=== PATIENT | male | born 1960 | race Caucasian/White ===

== ENCOUNTER → 2017-10-26 09:18 | Outpatient (CLI) | payer BC, SELFPAY ==
[2017-10-26 11:51] LABS: Alanine Aminotransferase 22 U/L (12-78); Albumin Level 4.3 gm/dL (3.4-5.0); Albumin/Globulin Ratio 1.2 (1.1-1.8); Alkaline Phosphatase 86 U/L (46-116); Anion Gap 12.1 mEq/L (5-15); Aspartate Amino Transferase 16 U/L (15-37); Bilirubin,Total 1.6 mg/dL (0.2-1.0); Blood Urea Nitrogen 13 mg/dL (7-18); Calcium 9.7 mg/dL (8.5-10.1); Carbon Dioxide 31 mmol/L (21.0-32.0); Chloride 106 mmol/L (98-107); Chol/HDL Ratio 6.7 (1-3.5); Cholesterol 221 mg/dL (140-200); Creatinine,Serum 0.87 mg/dL (0.70-1.30); Estimated Glomerular Filt Rate 90 ml/min (>60); GFR (African American) 109 ML/MIN (>60); Globulin 3.6 gm/dl (1.3-3.2); Glucose 101 mg/dL (74-106); HDL Cholesterol 33 mg/dL (27-67); LDL Cholesterol 160 mg/dL (0-130); Potassium 4.1 mmoL/L (3.5-5.1); Sodium 145 mmol/L (136-145); Thyroid Stimulating Hormone 2.58 uIU/ml (0.358-3.740); Total Protein,Serum 7.9 gm/dL (6.4-8.2); Triglycerides 138 mg/dL (30-200); VLDL Cholesterol 28 mg/dL (0-40)
== END ==
PROVIDERS: Visit Provider Nurse Practitioner Family
DX: E78.2 Mixed hyperlipidemia (principal); E03.9 Hypothyroidism, unspecified; I10 Essential (primary) hypertension
CPT/HCPCS: 36415; 80053; 80061; 84443

== ENCOUNTER → 2018-04-05 09:12 | Outpatient (CLI) | payer BC, SELFPAY ==
[2018-04-05 11:22] LABS: Alanine Aminotransferase 22 U/L (12-78); Albumin Level 3.9 gm/dL (3.4-5.0); Albumin/Globulin Ratio 1.1 (1.1-1.8); Alkaline Phosphatase 75 U/L (46-116); Anion Gap 12.2 mEq/L (5-15); Aspartate Amino Transferase 8 U/L (15-37); Blood Urea Nitrogen 16 mg/dL (7-18); Calcium 9.1 mg/dL (8.5-10.1); Carbon Dioxide 30 mmol/L (21.0-32.0); Chloride 106 mmol/L (98-107); Chol/HDL Ratio 5.2 (1-3.5); Cholesterol 173 mg/dL (140-200); Creatinine,Serum 0.93 mg/dL (0.70-1.30); Estimated Glomerular Filt Rate 83 ml/min (>60); GFR (African American) 101 ML/MIN (>60); Globulin 3.5 gm/dl (1.3-3.2); Glucose 108 mg/dL (74-106); HDL Cholesterol 33 mg/dL (27-67); LDL Cholesterol 127 mg/dL (0-130); Potassium 4.2 mmoL/L (3.5-5.1); Sodium 144 mmol/L (136-145); Thyroid Stimulating Hormone 2.62 uIU/ml (0.358-3.740); Total Protein,Serum 7.4 gm/dL (6.4-8.2); Triglycerides 65 mg/dL (30-200); VLDL Cholesterol 13 mg/dL (0-40)
== END ==
PROVIDERS: Visit Provider Nurse Practitioner Family
DX: E78.2 Mixed hyperlipidemia (principal); E03.9 Hypothyroidism, unspecified; I10 Essential (primary) hypertension
CPT/HCPCS: 36415; 80053; 80061; 84443

== ENCOUNTER → 2018-10-04 08:44 | Outpatient (CLI) | payer BC, SELFPAY ==
[2018-10-04 10:03] LABS: Alanine Aminotransferase 24 U/L (12-78); Albumin Level 3.8 gm/dL (3.4-5.0); Albumin/Globulin Ratio 1.1 (1.1-1.8); Alkaline Phosphatase 74 U/L (46-116); Anion Gap 13.1 mEq/L (5-15); Aspartate Amino Transferase 6 U/L (15-37); Bilirubin,Total 0.8 mg/dL (0.2-1.0); Blood Urea Nitrogen 12 mg/dL (7-18); Calcium 8.8 mg/dL (8.5-10.1); Carbon Dioxide 28 mmol/L (21.0-32.0); Chloride 106 mmol/L (98-107); Chol/HDL Ratio 5.3 (1-3.5); Cholesterol 174 mg/dL (140-200); Creatinine,Serum 0.85 mg/dL (0.70-1.30); Estimated Glomerular Filt Rate 92 ml/min (>60); GFR (African American) 111 ML/MIN (>60); Globulin 3.5 gm/dl (1.3-3.2); Glucose 111 mg/dL (74-106); HDL Cholesterol 33 mg/dL (27-67); LDL Cholesterol 122 mg/dL (0-130); Potassium 4.1 mmoL/L (3.5-5.1); Sodium 143 mmol/L (136-145); Thyroid Stimulating Hormone 3.08 uIU/ml (0.358-3.740); Total Protein,Serum 7.3 gm/dL (6.4-8.2); Triglycerides 95 mg/dL (30-200); VLDL Cholesterol 19 mg/dL (0-40)
== END ==
PROVIDERS: Visit Provider Nurse Practitioner Family
DX: E78.2 Mixed hyperlipidemia (principal); E03.9 Hypothyroidism, unspecified; I10 Essential (primary) hypertension
CPT/HCPCS: 36415; 80053; 80061; 84443

== ENCOUNTER → 2019-10-09 12:49 | Outpatient (CLI) | payer BC, SELFPAY ==
[2019-10-09 13:47] LABS: Alanine Aminotransferase 16 U/L (12-78); Albumin Level 4.5 g/dl (3.5-5.0); Albumin/Globulin Ratio 1.5 (1.1-1.8); Alkaline Phosphatase 66 U/L (38-126); Aspartate Amino Transferase 19 U/L (17-59); Blood Urea Nitrogen 13 mg/dl (9-20); Calcium 9.7 mg/dl (8.4-10.2); Carbon Dioxide 30 mmol/L (22.0-30.0); Chloride 104 mmol/L (98-107); Chol/HDL Ratio 4.7 (1-3.5); Cholesterol 199 mg/dl (140-200); Estimated Glomerular Filt Rate 98 ml/min (>60); GFR (African American) 119 ML/MIN (>60); Globulin 3.1 g/dL (1.3-3.2); Glucose 117 mg/dl (74-100); HDL Cholesterol 42 mg/dl (40-60); Sodium 139 mmol/L (136-145); Total Protein,Serum 7.6 g/dl (6.3-8.2); Triglycerides 118 mg/dl (30-150); VLDL Cholesterol 24 mg/dL (0-40)
[2019-10-09 13:58] LABS: Direct LDL Cholesterol 151.53 mg/dL (100-129)
== END ==
PROVIDERS: Visit Provider Nurse Practitioner Family
DX: E78.2 Mixed hyperlipidemia (principal); E03.9 Hypothyroidism, unspecified; I10 Essential (primary) hypertension
CPT/HCPCS: 36415; 80053; 80061; 84443

== ENCOUNTER → 2020-03-24 17:27 | Outpatient (CLI) | payer BC, SELFPAY ==
[2020-03-24 20:14] LABS: Hemoglobin A1C 5.3 % (4.0-6.0)
[2020-03-24 22:11] LABS: Chloride 100 mmol/L (98-107); Potassium 4.2 mmoL/L (3.5-5.1); Sodium 142 mmol/L (136-145)
[2020-03-24 22:13] LABS: Alanine Aminotransferase 18 U/L (12-78); Aspartate Amino Transferase 24 U/L (17-59); Blood Urea Nitrogen 16 mg/dl (9-20); Estimated Glomerular Filt Rate 76 ml/min (>60); GFR (African American) 92 ML/MIN (>60)
[2020-03-24 22:14] LABS: Albumin Level 4.5 g/dl (3.5-5.0); Albumin/Globulin Ratio 1.4 (1.1-1.8); Alkaline Phosphatase 69 U/L (38-126); Anion Gap 15.2 mEq/L (5-15); Bilirubin,Total 0.8 mg/dl (0.2-1.3); Carbon Dioxide 31 mmol/L (22.0-30.0); Globulin 3.2 g/dL (1.3-3.2); Glucose 81 mg/dl (74-100); Total Protein,Serum 7.7 g/dl (6.3-8.2)
[2020-03-24 22:45] LABS: Thyroid Stimulating Hormone 3.89 uIU/mL (0.465-4.68)
== END ==
PROVIDERS: Visit Provider Nurse Practitioner Family
DX: R73.9 Hyperglycemia, unspecified (principal); I10 Essential (primary) hypertension; E03.9 Hypothyroidism, unspecified
CPT/HCPCS: 36415; 80053; 83036; 84443

== ENCOUNTER → 2020-10-01 07:17 | Outpatient (CLI) | payer BC, SELFPAY ==
[2020-10-01 07:43] LABS: Basophils # 0.1 K/mm3 (0-0.2); Basophils % 1.1 % (0.1-2.0); Eosinophils # 0.7 K/mm3 (0.0-0.4); Eosinophils % 12.7 % (0.1-12.0); Hematocrit 46.9 % (42.0-52.0); Hemoglobin 15.1 g/dL (14.1-18.0); Lymphocytes # 1.6 K/mm3 (0.7-4.5); Lymphocytes % 30.9 % (10-50); Mean Corpuscular HGB Conc 32.2 g/dL (31.8-35.4); Mean Corpuscular Hemoglobin 29.7 pg (27.0-31.2); Mean Corpuscular Volume 92.2 fl (80-94); Mean Platelet Volume 8.1 fl (7.4-10.4); Monocytes # 0.4 K/mm3 (0.1-1.0); Monocytes % 7.1 % (1.7-9.3); Neutrophils # 2.5 K/mm3 (1.8-7.8); Neutrophils % 48.2 % (37.0-80.0); Platelet Count 268 K/mm3 (142-424); Red Blood Count 5.09 M/mm3 (4.60-6.20); Red Cell Distribution Width 13.2 % (11.5-17.5); White Blood Count 5.2 K/mm3 (4.8-10.8)
[2020-10-01 09:42] LABS: Alanine Aminotransferase 19 U/L (12-78); Albumin Level 4.5 g/dl (3.5-5.0); Albumin/Globulin Ratio 1.7 (1.1-1.8); Alkaline Phosphatase 64 U/L (38-126); Anion Gap 8.2 mEq/L (5-15); Aspartate Amino Transferase 21 U/L (17-59); Blood Urea Nitrogen 13 mg/dl (9-20); Calcium 9.6 mg/dl (8.4-10.2); Carbon Dioxide 32 mmol/L (22.0-30.0); Chloride 105 mmol/L (98-107); Chol/HDL Ratio 7.4 (1-3.5); Cholesterol 192 mg/dl (140-200); Estimated Glomerular Filt Rate 86 ml/min (>60); GFR (African American) 103 ML/MIN (>60); Globulin 2.7 g/dL (1.3-3.2); Glucose 113 mg/dl (74-100); HDL Cholesterol 26 mg/dl (40-60); Potassium 4.2 mmoL/L (3.5-5.1); Sodium 141 mmol/L (136-145); Total Protein,Serum 7.2 g/dl (6.3-8.2); Triglycerides 127 mg/dl (30-150); VLDL Cholesterol 25 mg/dL (0-40)
[2020-10-01 09:53] LABS: Direct LDL Cholesterol 125.39 mg/dL (100-129)
[2020-10-01 10:12] LABS: Thyroid Stimulating Hormone 2.19 uIU/mL (0.465-4.68)
== END ==
PROVIDERS: Visit Provider Nurse Practitioner Family
DX: I10 Essential (primary) hypertension (principal); E03.9 Hypothyroidism, unspecified; E78.5 Hyperlipidemia, unspecified
CPT/HCPCS: 36415; 80053; 80061; 84443; 85025

== ENCOUNTER → 2021-05-05 10:52 | Outpatient (CLI) | payer BC, SELFPAY ==
[2021-05-05 12:21] LABS: Alanine Aminotransferase 24 U/L (12-78); Albumin Level 4.5 g/dl (3.5-5.0); Albumin/Globulin Ratio 1.5 (1.1-1.8); Alkaline Phosphatase 82 U/L (38-126); Anion Gap 11.1 mEq/L (5-15); Aspartate Amino Transferase 27 U/L (17-59); Bilirubin,Total 1.3 mg/dl (0.2-1.3); Blood Urea Nitrogen 14 mg/dl (9-20); Calcium 9.8 mg/dl (8.4-10.2); Carbon Dioxide 31 mmol/L (22.0-30.0); Chloride 102 mmol/L (98-107); Chol/HDL Ratio 6.4 (1-3.5); Cholesterol 232 mg/dl (140-200); Estimated Glomerular Filt Rate 86 ml/min (>60); GFR (African American) 103 ML/MIN (>60); Glucose 111 mg/dl (74-100); HDL Cholesterol 36 mg/dl (40-60); Potassium 4.1 mmoL/L (3.5-5.1); Sodium 140 mmol/L (136-145); Total Protein,Serum 7.5 g/dl (6.3-8.2); Triglycerides 158 mg/dl (30-150); VLDL Cholesterol 32 mg/dL (0-40)
[2021-05-05 12:32] LABS: Direct LDL Cholesterol 156.52 mg/dL (100-129)
[2021-05-05 12:51] LABS: Thyroid Stimulating Hormone 2.47 uIU/mL (0.465-4.68)
== END ==
PROVIDERS: Visit Provider Nurse Practitioner Family
DX: E03.9 Hypothyroidism, unspecified (principal); I10 Essential (primary) hypertension; E78.2 Mixed hyperlipidemia; R73.9 Hyperglycemia, unspecified
CPT/HCPCS: 36415; 80053; 80061; 84443

== ENCOUNTER → 2022-09-10 11:52 | Outpatient (CLI) | payer BC, SELFPAY | PROVIDERS: PCP Internal Medicine Adolescent Medicine; Visit Provider Internal Medicine Adolescent Medicine | DX: G47.33 Obstructive sleep apnea (adult) (pediatric) (principal); R06.83 Snoring | CPT/HCPCS: G0399 ==

== ENCOUNTER 2023-06-14 07:32 | Outpatient (CLI) | payer MEDICARE, SELFPAY ==
[2023-06-14 08:11] LABS: Basophils # 0.1 K/mm3 (0-0.2); Basophils % 1.6 % (0.1-2.0); Eosinophils # 0.5 K/mm3 (0.0-0.4); Eosinophils % 8.8 % (0.1-12.0); Hematocrit 45.6 % (42.0-52.0); Hemoglobin 15.7 g/dL (14.1-18.0); Lymphocytes # 1.7 K/mm3 (0.7-4.5); Lymphocytes % 27.6 % (10-50); Mean Corpuscular HGB Conc 34.4 g/dL (31.8-35.4); Mean Corpuscular Hemoglobin 30.6 pg (27.0-31.2); Mean Platelet Volume 8.4 fl (7.4-10.4); Monocytes # 0.6 K/mm3 (0.1-1.0); Neutrophils # 3.3 K/mm3 (1.8-7.8); Platelet Count 236 K/mm3 (142-424); Red Blood Count 5.13 M/mm3 (4.60-6.20); Red Cell Distribution Width 13.7 % (11.5-17.5); White Blood Count 6.2 K/mm3 (4.8-10.8)
[2023-06-14 08:54] LABS: Alanine Aminotransferase 30 U/L (12-78); Albumin/Globulin Ratio 1.4 (1.1-1.8); Alkaline Phosphatase 65 U/L (38-126); Anion Gap 9.9 mEq/L (5-15); Aspartate Amino Transferase 26 U/L (17-59); Bilirubin,Total 0.8 mg/dl (0.2-1.3); Blood Urea Nitrogen 12 mg/dl (9-20); Calcium 9.3 mg/dl (8.4-10.2); Carbon Dioxide 31 mmol/L (22.0-30.0); Chloride 105 mmol/L (98-107); Estimated Glomerular Filt Rate 85 ml/min (>60); GFR (African American) 102 ML/MIN (>60); Globulin 2.8 g/dL (1.3-3.2); Glucose 120 mg/dl (74-100); Potassium 3.9 mmoL/L (3.5-5.1); Sodium 142 mmol/L (136-145); Total Protein,Serum 6.8 g/dl (6.3-8.2)
[2023-06-14 09:23] LABS: Prostate Specific Ag, Diagnost 1.11 ng/ml (0.0-4.0)
== END 2023-06-14 23:59 ==
LOC: LAB 07:36
PROVIDERS: PCP Internal Medicine Adolescent Medicine; Visit Provider Internal Medicine Adolescent Medicine
DX: K62.6 Ulcer of anus and rectum; N40.2 Nodular prostate without lower urinary tract symptoms
CPT/HCPCS: 36415; 80053; 84153; 85025

== ENCOUNTER 2023-09-13 09:51 | Day surgery (SDC) | payer MEDICARE, SELFPAY ==
[2023-09-11 14:15] VITALS: BMI 32.8
[2023-09-13 10:21] VITALS: BP 106/68; PULSE 60; RESP 18; TEMP 36.3; O2SAT 98
[2023-09-13] MEDS: LACTATED RINGERS 1000ML 1,000 ML 25 ML IV (10:29)
--- NOTE | 2023-09-13 12:46 | EXP.ANES.CKL ---
[facility] Disclaimer: The information contained in this section may have been updated after the patient was seen, as this information can be updated by other users. Medical History History of irregular heartbeat History of high blood pressure Surgical History History of radiofrequency ablation procedure for cardiac arrhythmia History of colonoscopy History of appendectomy Family History Other Diabetes Hypertension Stroke Social History Smoking Status: Never smoker alcohol intake: current substance use type: denies use current occupational status: retired Travel in the last 8 weeks: None [facility] Anesthesia Checklist Patient Identification Patient Identification: Arm Band, Family and Verbal (Name & ) Structural Data Admitted From: Home Planned Operative Procedure/s: Colonoscopy Consent for Planned Operative Procedure(s) Verified: Yes Verified Documents: Surgical Consent and History and Physical NPO Status Verified Time NPO: 20:00 Chart Verification Results Verified: CBC and BMP Additional verifications Patient : No Anesthesia Reactions: No Previous Colonoscopy: Yes Cardiovascular Assessment Heart Sounds: S1 & S2 Pulse Rhythm: Irregular Peripheral Edema: No Airway Assessment Mallampati Score:: Class II C-Spine Mobility Assessed: Yes (FROM) TMJ Mobility Assessed: Yes Dentition: Good Dentition (Nothing loose per pt.) Neurological Assessment Level of Consciousness: Awake, Alert, Appropriate and Follows Commands Hx Seizures: No Numbness or tingling in extremities: No Anesthesia Plan Anesthesia Risk discussed: Yes Anesthesia Plan: Verified ASA Class: III Anesthesia Type: MAC
--- NOTE | 2023-09-13 13:00 | EXP.GEN.HP ---
HPI HPI HPI: Patient presents the office for colonoscopy. Patient is a pleasant 63-year-old male. He is referred by Dr. Keating for hemorrhoids and initially seen in the office on 06/18/2023. Patient has a history about 21 years ago of empyema requiring thoracentesis and chest tube placement. He is now referred for what he describes as an anal lesion/tag. It has been present for quite some time. He speculates possibly for several years. He does have some itching. He has used some antibiotic ointment. Denies any bleeding. He did undergo previous colonoscopy many years ago. No changes in his bowels. Of note, the patient is on Eliquis. He underwent cardiac ablation. After my initial evaluation I was considering a colonoscopy with exam under anesthesia to be done in the operating room. Patient states that he has not had any additional problems as previously noted. Examination in the office revealed a left posterior lateral anal skin tag which appears to be benign. To the right he had some tenderness. But examination was unremarkable. As he was due for colonoscopy plan was for consideration of exam under anesthesia in the operating room with intraoperative colonoscopy. Decision was then made to proceed with colonoscopy in the endoscopy room with possible endoscopy. [facility] Disclaimer: The information contained in this section may have been updated after the patient was seen, as this information can be updated by other users. Medical History History of irregular heartbeat History of high blood pressure Surgical History History of radiofrequency ablation procedure for cardiac arrhythmia History of colonoscopy History of appendectomy Family History Other Diabetes Hypertension Stroke Social History (Updated 09/13/23 @ 12:48 by Dennise Hogan CRNA) Smoking Status: Never smoker alcohol intake: current substance use type: denies use current occupational status: retired Travel in the last 8 weeks: None Meds Home Medications and Allergies Home Medications Medication Instructions Recorded Confirmed Type apixaban 5 mg tablet (Eliquis) 5 mg PO BID 05/23/23 09/11/23 History levothyroxine 100 mcg tablet 100 mcg PO DAILY 05/23/23 09/11/23 History (Synthroid) lisinopril 40 mg tablet 40 mg PO DAILY 05/23/23 09/11/23 History metoprolol succinate 100 mg 100 mg PO DAILY 05/23/23 09/11/23 History tablet,extended release 24 hr hydrocortisone acetate 25 mg 25 mg ID DAILY #12 ea 06/18/23 09/11/23 Rx rectal suppository (Anusol-HC) amlodipine 10 mg tablet 10 mg PO DAILY 07/25/23 09/11/23 History New Prescriptions to Start Prescriptions: Allergies Allergy/AdvReac Type Severity Reaction Status Date / Time metaxalone [From Skelaxin] Allergy Intermediate Hives Verified 09/13/23 10:42 Exam Data for Last 24 hours Vital signs and Labs for Last 24 Hours: Temp Pulse Resp BP Pulse Ox O2 Del Method 97.3 F L 60 18 106/68 L 98 Room Air 09/13/23 10:21 09/13/23 10:21 09/13/23 10:21 09/13/23 10:21 09/13/23 10:21 09/13/23 10:21 I & O for Last 24 hours: Intake & Output 09/11/23 09/12/23 09/13/23 09/14/23 11:59 11:59 11:59 11:59 Weight 210 lb Constitutional Constitutional: no acute distress *Routine HEENT Exam Head: Present normocephalic Eye: Present EOMI and PERRL ENT: Present mucous membranes moist *Routine Neck Exam Neck: Present supple; Absent lymphadenopathy *Routine Respiratory Exam Respiratory: Present CTA bilaterally *Routine Cardiovascular Exam Cardiovascular: Present RRR *Routine Abdominal Exam Abdominal: Present soft and normoactive bowel sounds; Absent tenderness *Routine Rectal Exam Rectal:: deferred *Routine Genitalia Exam Genitalia:: deferred *Routine Extremities Exam Extremities: Absent cyanosis, clubbing or edema *Routine Skin Exam Skin: Present warm; Absent rash *Routine Neurological Exam Neurological: Present alert and oriented X3 Assessment and Plan *Assessment and plan (1) Anal skin tag: Status: Acute Category: Medical Code(s): K64.4 - Residual hemorrhoidal skin tags
[2023-09-13 13:10] VITALS: O2SAT 98
--- NOTE | 2023-09-13 13:42 | P.PCN_ITS ---
Procedure: Date: 09/13/23 Patient Date of :: 1960 Procedure Performed:: Total colonoscopy to terminal ileum with multiple polypectomy using biopsy forceps Indications:: Patient presents the office for colonoscopy. Patient is a pleasant 63-year-old male. He is referred by Dr. Keating for hemorrhoids and initially seen in the office on 06/18/2023. Patient has a history about 21 years ago of empyema req uiring thoracentesis and chest tube placement. He is now referred for what he describes as an anal lesion/tag. It has been present for quite some time. He speculates possibly for several years. He does have some itching intermittently. He has used some antibiotic ointment. Denies any bleeding. He did undergo previous colonoscopy many years ago (at least 25 years ago). No changes in his bowels. Of note, the patient is on Eliquis. He underwent cardiac ablation. After my initial evaluation I was considering a colonoscopy with exam under anesthesia to be done in the operating room. Examination in the office revealed a left posterior lateral anal skin tag which appears to be benign. To the right he had some tenderness. But examination was unremarkable. As he was due for colonoscopy plan was for consideration of exam under anesthesia in the operating room with intraoperative colonoscopy. Decision was then made to proceed with colonoscopy in the endoscopy room with possible an oscopy. . Performing Provider:: Derrek San MD Referring Provider:: Heri Keating MD Sedation:: MAC sedation Procedure:: Patient history was obtained and appropriate physical examination was performed. Patient's medications and allergies were reviewed. Informed consent was obtained after explaining the benefits, alternatives, and risks of the procedure including, but not limited to, bleeding, perforation, missed lesions, and adverse reaction to anesthesia medications. Patient was transported to endoscopy procedure room. Patient was connected to monitoring devices. Throughout the procedure the patient's blood pressure, pulse, and oxygen saturations were monitored continuously. Patient identification and planned procedure were verified by the staff. Patient was positioned in lateral decubitus position. Digital anorectal exam was performed. Variable stiffness Olympus colonoscope was inserted and advanced under direct visualization to the cecum. Adequacy of the colonic prep aration was noted. The colonoscope was advanced a short distance into the terminal ileum. The colonoscope was then slowly withdrawn while carefully examining the color, texture, anatomy, and integrity of the mucosoa circumferentially. Within the rectum retroflexion was performed. Colonoscope was then withdrawn. Impression: Colonic preparation was good. Visualization to terminal ileum was good. In the distal sigmoid and rectosigmoid region there were numerous hyperplastic appearing polyps. Many of these were removed with cold biopsy forceps. At the completion of the procedure inspection was carried out of the anal area. The posterior lateral left region there was a tiny skin tag. This appeared benign consistent with previous external hemorrhoid. No appreciable skin changes. Ano scope was inserted and internally at this location this area. Unremarkable. [place] anoscope was inserted as well and inspection was carried out. . Findings:: Probable multiple rectosigmoid polyps Left posterior lateral external hemorrhoid/anal papilla Recommendations:: Repeat colonoscopy pending pathology. If all hyperplastic polyps likely up to 10 years. This external anal papilla may be excised if patient so desires. Complications:: None immediately apparent Estimated blood obtained (mL): 1 Colonoscopy Component Colonoscopy Component Was a colonoscopy performed during today's procedure?: Yes Recommended follow up colonoscopy of at least 10 years?: Yes
[2023-09-13 13:43] VITALS: BP 97/61; PULSE 68; RESP 18; TEMP 36.2; O2SAT 93
[2023-09-13 13:51] VITALS: BP 95/61; PULSE 67; RESP 18; O2SAT 94
--- NOTE | 2023-09-13 13:52 | P.PNANES_ITS ---
[facility] Anesthesia Record Part I Anesthesia Record I Intake, IV Amount: 650 Hydration: Adequate Estimated blood loss (mL): 1 Urine output (mL): 0 Blood Products used (#): none Blood Pressure: 97/61 SaO2: 68 Pulse Rate: 68 Airway Patency: Patent Respiratory Rate: 18 Temperature: 97.1 F Patient is:: Drowsy and Stable Stable to PACU at:: 13:48
[2023-09-13 13:53] VITALS: BP 97/61; PULSE 68; RESP 18; TEMP 36.2; O2SAT 68
[2023-09-13 14:06] VITALS: BP 99/58; PULSE 64; RESP 18; O2SAT 99
== END 2023-09-13 14:06 | disposition home or self-care (01) ==
PROVIDERS: PCP Internal Medicine Adolescent Medicine; Visit Provider Surgery
PROC: 0DJD8ZZ Inspection of Lower Intestinal Tract, Via Natural or Artificial Opening Endoscopic (ICD-10-PCS; CPT 45380; principal; 2023-09-13 12:30)
DX: K64.4 Residual hemorrhoidal skin tags (principal); Z12.11 Encounter for screening for malignant neoplasm of colon; K63.5 Polyp of colon; K64.9 Unspecified hemorrhoids
CPT/HCPCS: 45380; 88305

== ENCOUNTER 2024-03-04 09:00 | Outpatient (CLI) | payer MEDICARE, SELFPAY ==
[2024-03-04 09:24] LABS: Chloride 105 mmol/L (98-107); Sodium 141 mmol/L (136-145)
[2024-03-04 09:25] LABS: Basophils # 0.1 K/mm3 (0-0.2); Eosinophils # 0.4 K/mm3 (0.0-0.4); Eosinophils % 4.5 % (0.1-12.0); Hematocrit 43.7 % (42.0-52.0); Hemoglobin 15.6 g/dL (14.1-18.0); Lymphocytes # 1.7 K/mm3 (0.7-4.5); Lymphocytes % 21.4 % (10-50); Mean Corpuscular HGB Conc 35.7 g/dL (31.8-35.4); Mean Corpuscular Hemoglobin 31.2 pg (27.0-31.2); Mean Corpuscular Volume 87.5 fl (80-94); Mean Platelet Volume 8.3 fl (7.4-10.4); Monocytes # 0.5 K/mm3 (0.1-1.0); Monocytes % 6.5 % (1.7-9.3); Neutrophils # 5.2 K/mm3 (1.8-7.8); Neutrophils % 66.6 % (37.0-80.0); Platelet Count 246 K/mm3 (142-424); Potassium 4.1 mmoL/L (3.5-5.1); Red Blood Count 4.99 M/mm3 (4.60-6.20); Red Cell Distribution Width 14.1 % (11.5-17.5); White Blood Count 7.7 K/mm3 (4.8-10.8)
[2024-03-04 09:27] LABS: Blood Urea Nitrogen 11 mg/dl (9-20); Estimated Glomerular Filt Rate 75 ml/min (>60); GFR (African American) 91 ML/MIN (>60)
[2024-03-04 09:28] LABS: Anion Gap 10.1 mEq/L (5-15); Calcium 9.6 mg/dl (8.4-10.2); Carbon Dioxide 30 mmol/L (22.0-30.0); Glucose 128 mg/dl (74-100)
== END 2024-03-04 23:59 | disposition home or self-care (01) ==
LOC: LAB 09:02
PROVIDERS: PCP Internal Medicine Adolescent Medicine; Visit Provider Surgery
DX: K64.9 Unspecified hemorrhoids (principal); K64.4 Residual hemorrhoidal skin tags
CPT/HCPCS: 36415; 80048; 85025

== ENCOUNTER 2024-03-11 11:52 | Outpatient (CLI) | payer MEDICARE, SELFPAY ==
--- NOTE | 2024-03-11 12:15 | ECG_ITS ---
APPROVED REPORT Exam: Resting ECG HR:62 bpm ECG Measurements Heart Rate 62 AXES NH 172 P 45 QRSd 90 QRS 7 QT 388 T 48 QTc 394 Conclusion SINUS RHYTHM NORMAL ECG UNCONFIRMED REPORT Electronically signed by : Heri Keating MD 03/13/2024 09:35:37
== END 2024-03-11 23:59 | disposition home or self-care (01) ==
LOC: PREOP 11:53
PROVIDERS: PCP Internal Medicine Adolescent Medicine; Visit Provider Surgery
DX: Z01.810 Encounter for preprocedural cardiovascular examination (principal)
CPT/HCPCS: 93005

== ENCOUNTER → 2024-03-23 06:02 | Day surgery (SDC) | payer MEDICARE, SELFPAY ==
[2024-03-11 12:19] VITALS: BMI 32.3
[2024-03-23] VITALS (9 sets, daily range): BP systolic 96–140; BP diastolic 51–82; PULSE 58–68; RESP 12–18; TEMP 36.1–36.3; O2SAT 92–99
[2024-03-23] MEDS: LACTATED RINGERS 1000ML 1,000 ML 25 ML IV (06:33)
--- NOTE | 2024-03-23 06:52 | P.PNANES_ITS ---
[facility] Disclaimer: The information contained in this section may have been updated after the patient was seen, as this information can be updated by other users. Medical History Hypothyroid History of atrial fibrillation History of irregular heartbeat History of high blood pressure Surgical History History of radiofrequency ablation procedure for cardiac arrhythmia History of colonoscopy History of appendectomy Family History Other Diabetes Hypertension Stroke Social History (Updated 03/23/24 @ 06:24 by Leigh Montaño RN) Smoking Status: Never smoker alcohol intake: never substance use type: denies use current occupational status: retired Travel in the last 8 weeks: None [facility] Anesthesia Checklist Patient Identification Patient Identification: Arm Band and Family Structural Data Admitted From: Home Planned Operative Procedure/s: Excision anal skin tag/external hemorroids. Consent for Planned Operative Procedure(s) Verified: Yes Verified Documents: Surgical Consent and History and Physical NPO Status Verified Time NPO: 00:00 Additional verifications Patient : No Anesthesia Reactions: No Hx Blood Transfusions: No Blood Transfusion Reaction: No Cephalosporin Allergy: No Previous Colonoscopy: Yes Airway Assessment Mallampati Score:: Class III C-Spine Mobility Assessed: Yes TMJ Mobility Assessed: Yes Dentition: Good Dentition Neurological Assessment Level of Consciousness: Awake, Alert, Appropriate and Follows Commands Hx Seizures: No Numbness or tingling in extremities: No Anesthesia Plan Anesthesia Risk discussed: Yes ASA Class: II Anesthesia Type: General Preoperative Comments Pre-Operative Comments: Cardiac ablation for AF with good results.
[2024-03-23] MEDS: CLINDAMYCIN PHOSPHATE/D5W 900 MG/50 ML PIGGYBACK 100 MG IV (07:25)
[2024-03-23] MEDS: BUPIVACAINE 0.5% W/EPI 1:200,000 30ML VIAL 30 ML IJ (07:34)
--- NOTE | 2024-03-23 07:49 | EXP.OP.NOTE ---
Date of procedure: 03/23/24 Pre-op Diagnosis:: External hemorrhoid. Post-op Diagnosis:: Same Procedure performed:: Excision external hemorrhoid left posterior lateral location (hemorrhoidectomy) Surgeon:: Derrek San MD DIRECT SUPPORT STAFF:: Gray Rogers Anesthesia: GETA Estimated blood loss (mL): 5 Operative findings:: He had findings of a external hemorrhoid with some fibrosis in the left posterior lateral location Operative note:: Consent was obtained patient was taken the operating room. He was positioned in supine position. General anesthesia was induced. He was repositioned in lithotomy position. Area was prepped and draped in the standard surgical fashion. Digital examination was performed. Initially bivalve anoscope was inserted. However this did not allow for good visualization and he had some minor anal stenosis. Hitchcock retractor was inserted. There was evidence of hemorrhoid in the left posterior lateral location with external hemorrhoid fibrosis likely. This was excised using Metzenbaum scissors and sent off as a specimen. The defect was closed with a running 3 oh locking chromic suture with oversewing using simple running chromic. This resulted in decent hemostasis. Anorectal vault was irrigated. Local anesthetic was infiltrated. Gelfoam roll soaked in half percent Marcaine with epinephrine was inserted into the anorectal vault. Dressing was applied. Condition: stable Disposition: PACU Complications:: None immediately apparent
--- NOTE | 2024-03-23 07:52 | EXP.ANES.I ---
[facility] Anesthesia Record Part I Anesthesia Record I Intake, IV Amount: 1,000 Hydration: Adequate Estimated blood loss (mL): 0 Urine output (mL): 0 Blood Pressure: 96/51 SaO2: 94 Pulse Rate: 66 Airway Patency: Patent Respiratory Rate: 12 Temperature: 97 F Patient is:: Drowsy and Stable Stable to PACU at:: 07:50
[2024-03-25 10:15] VITALS: BP 103/68; PULSE 67; RESP 16; TEMP 36.1; O2SAT 98
--- NOTE | 2024-03-25 10:15 | EXP.ANES.II ---
[facility] Anesthesia Record Part II Anesthesia Record Part II Discharge Time: 08:20 Destination: Surgical Day Care (OP Surgery) PACU nurse assessment reviewed?: Yes Patient Condition:: Good Anesthesia Complications:: None Swallowing reflex intact?: Yes Airway Patency: Patent Cyanosis?: No Blood Pressure: 103/68 SaO2: 98 Respiratory Rate: 16 Pulse Rate: 67 Temperature: 97 F Mental Status: Alert & Oriented Pain level:: 0 Nausea and/or vomitting:: None Intake, IV Amount: 0 Hydration: Adequate
== END | disposition home or self-care (01) ==
PROVIDERS: PCP Internal Medicine Adolescent Medicine; Visit Provider Surgery
PROC: (CPT 46220; principal; 2024-03-23 07:30)
DX: K64.4 Residual hemorrhoidal skin tags (principal)
CPT/HCPCS: 46220; 46999; 96374; J0736; J1100; J1885; J2250; J2405; J3010; J7120